=== PATIENT | male | born 1955 | race Caucasian/White ===

== ENCOUNTER 2022-12-24 20:08 | Emergency (ER) | payer BC, SELFPAY ==
[2022-12-24 20:16] VITALS: BP 144/81; PULSE 81; RESP 18; TEMP 36.7; O2SAT 99; BMI 26.4
[2022-12-24] MEDS: lidocaine HCL 2 % JELLY (TOP) STERILE 6 ML UR (20:57)
[2022-12-24] MEDS: TAMSULOSIN HCL 0.4 MG CAPSULE PO (21:09)
[2022-12-24 21:14] LABS: Appearance Urine Clear (Clear); Bilirubin Urine Negative (Negative); Blood Urine 3+ (Negative); Color Urine Red (Yellow); Glucose Urine Negative (Negative); Ketones Urine Negative (Negative)
[2022-12-24 21:15] LABS: Bacteria Urine Few; Leukocyte Esterase Urine Trace (Negative); Nitrite Urine Negative (Negative); Protein Urine 2+ (Negative); RBC Urine >100 (0-2); Urobilinogen Urine 0.2 (0.2-1.0); WBC Urine 0-2 (0-5)
--- NOTE | 2022-12-24 21:41 | ED.MALEGU ---
HPI - Male Genitourinary General Date Seen: 12/24/22 Chief complaint: Urogenital Problems, Male Stated complaint: Kidney stone removed-no urine 10 hrs Time Seen by Provider: 12/24/22 20:25 Source: patient Mode of arrival: ambulatory Limitations: no limitations History of Present Illness HPI Narrative: Patient is a very nice 67-year-old gentleman who underwent a placement of ureteral stent today at [facility], and lithotripsy, he has not Peed since he had the procedure this morning between 9 and 11 a.m.. He feels full in his lower abdominal region, he denies any fevers chills, he has been able for subtle little bit of Jose Alberto-Aid colored red urine. The indication for the procedure was kidney stones. Denies being on anticoagulants, he does take a Flomax but has not taken any today. Related Data Home Medications Medication Instructions Recorded Confirmed tamsulosin 0.4 mg capsule (Flomax) 0.4 mg PO DAILY 12/24/22 12/24/22 Allergies Allergy/AdvReac Type Severity Reaction Status Date / Time Penicillins AdvReac Verified 12/24/22 20:18 Review of Systems Status of ROS: Reports: 6 or more systems reviewed and unremarkable except as noted in History and below Exam Narrative: Exam Narrative: On examination he is in no apparent distress he is pleasant alert, is got some fullness in his lower suprapubic region, but really nontender, bowel sounds are normal no organomegaly with ultrasound he has 650 mL a urine, and red urine in that he has passed a little bit of. We placed a catheter any at out over half a L felt immensely better. Const: Vital Signs, click to edit/add: Vital Signs - 24 hr 12/24/22 20:16 Temperature 98.0 F Pulse Rate [Left P ulse Oximeter] 81 Respiratory Rate 18 Blood Pressure [Ri ght Upper Arm] 144/81 H Pulse Oximetry 99 Oxygen Delivery Me thod Room Air Documenting provider has reviewed patient's vital signs: yes Course Vital Signs Vital signs: Initial Vital Signs Temperature 98.0 F 12/24/22 20:16 Temperature Source Temporal Artery Scan 12/24/22 20:16 Pulse Rate 81 12/24/22 20:16 Respiratory Rate 18 12/24/22 20:16 Blood Pressure 144/81 H 12/24/22 20:16 Blood Pressure Mean 102 12/24/22 20:16 Blood Pressure Position Sitting 12/24/22 20:16 Pulse Oximetry 99 12/24/22 20:16 Oxygen Delivery Method Room Air 12/24/22 20:16 Vital Signs Temperature 98.0 F 12/24/22 20:16 Pulse Rate 81 12/24/22 20:16 Respiratory Rate 18 12/24/22 20:16 Blood Pressure 144/81 H 12/24/22 20:16 Pulse Oximetry 99 12/24/22 20:16 Oxygen Delivery Method Room Air 12/24/22 20:16 Temperature 98.0 F 12/24/22 20:16 Pulse Rate 81 12/24/22 20:16 Respiratory Rate 18 12/24/22 20:16 Blood Pressure 144/81 H 12/24/22 20:16 Pulse Oximetry 99 12/24/22 20:16 Oxygen Delivery Method Room Air 12/24/22 20:16 MDM - Male Genitourinary MDM Narrative Medical decision making narrative: I do think that he has urinary tension after the procedure, this is fairly common, likely which is with the anesthesia. Probably has a small amount of BPH also. I think it be reasonable leave the catheter in, Trevor drink generous fluids take his Flomax as directed, and call his urologist in the morning, asked when he should be seen to have his catheter taken out. He was comfortable this. I do not think that there is infection based here, he has no white cells, is urine is otherwise just shows red cells. We will do a culture. Medical Records Attestation: I reviewed the patient's medical records. Lab Data Attestation: I reviewed the patient's lab results. Labs: Lab Results 12/24/22 Range/Units 20:45 Urine Color Red A (Yellow) Urine Appearance Clear (Clear) Urine pH 7.0 (5.0-8.5) Ur Specific [place] 1.010 (1.000-1.030) Urine Protein 2+ A (Negative) Urine Glucose (UA) Negative (Negative) Urine Ketones Negative (Negative) Urine Blood 3+ A (Negative) Urine Nitrite Negative (Negative) Urine Bilirubin Negative (Negative) Urine Urobilinogen 0.2 (0.2-1.0) Ur Leukocyte Esterase Trace A (Negative) Urine RBC >100 A (0-2) Urine WBC 0-2 (0-5) Ur Squamous Epith Cells None (None-Few) Urine Bacteria Few A (None) Discharge Plan Discharge Clinical Impression: Post-operative complication, Acute urinary retention Patient Disposition: Home, Self-Care Condition: Stable Instructions: Urinary Retention in Men (ED), Conde Catheter Placement and Care (ED) Additional Instructions: Discharge home, leave catheter in, please call Urology provider tomorrow, they will give you direction on whether 48 or 72 hours to follow-up for catheter removal, taking Flomax as directed. Return if your unable to pass any urine. Activity Level: Light activity Prescriptions: No Action tamsulosin [Flomax] 0.4 mg capsule 0.4 mg PO DAILY Stand Alone Forms: [email or web address] Info Instructions
== END 2022-12-24 21:35 | disposition home or self-care (01) ==
PROVIDERS: Emergency Provider Family Medicine
DX: R33.9 Retention of urine, unspecified (principal)
CPT/HCPCS: 51702; 51798; 81001; 87086; 99283; 99284; A9270